=== PATIENT | male | born 1970 | race Caucasian/White ===

== ENCOUNTER 2022-06-17 08:26 | Emergency (ER) | payer BC, SELFPAY ==
--- NOTE | 2022-06-17 08:32 | ED.ABDPAIN ---
HPI - Abdominal Pain General Chief Complaint: Abdominal Pain Stated Complaint: rt side lower stomach pain Time Seen by Provider: 06/17/22 08:32 Source: patient Mode of arrival: ambulatory Limitations: no limitations History of Present Illness HPI narrative: Mr. Thornton is a 52-year-old male patient presenting to the clinic today with complaints right lower abdominal pain x2 weeks. He reports that 2 weeks ago he had pain in his right lower quadrant rating it a 10/10 and said it was very sharp. Over the last 2 weeks he has had constant pain to the right lower abdomen that is worse when he eats. States right now he reports his pain is a 3/10. States that he has had hot flashes and cold chills while having the pain however he does not know of any fever. Last bowel movement was yesterday and was normal for him. He denied any blood being in the stool. States he is only able to eat very small amounts due to the pain but if he goes without eating he gets nauseated and lightheaded from not eating. He is passing gas. Reports nausea only when not eating. He denies any vomiting currently. Related Data Home Medications Medication Instructions Recorded Confirmed No Home Medications 06/15/20 06/15/20 Allergies Allergy/AdvReac Type Severity Reaction Status Date / Time No Known Allergies Allergy Verified 06/17/22 09:03 Review of Systems Review of Systems: Pertinent positives per HPI. Patient denies any fever, chills, rash, headache, visual changes, dizziness, cough, runny nose, sore throat, shortness of breath, chest pain, palpitations, vomiting, diarrhea, constipation, or any urinary issues. [facility] Past Medical History Medical History Decreased libido Screening for lipid disorders Screening for prostate cancer Family History Family History Father No problems noted. Mother No problems noted. Sibling No problems noted. Social History Social History Smoking status: Never smoker Alcohol intake: never Substance use: never Additional occupation/education comments: [employer] Comments At the time of my signature, I reviewed and agree with the nursing past medical, surgical, social, and family history. There is no relevant family history pertinent to the patient complaint. Exam Narrative: General: Well-developed, well nourished, in no apparent distress. Head: Normocephalic, atraumatic. Cardio: Regular rate and rhythm, s1 and s2 normal, no murmur appreciated. Resp: Clear to auscultation bilaterally, no rhonchi, rales, wheezing or rubs. Abdomen: Soft, pliable, bowel sounds present in all quadrants, tender to palpation over the right lower quadrant/McBurney's point, no organomegly, no CVAT tenderness. Negative psoas and obturator sign Course Course Emergency Course: Portions of this record may have been created with voice recognition software. Level of Care: Express Care Visit Vital Signs Vital signs: Vital Signs Temperature 36.4 C 06/17/22 08:41 Pulse Rate 80 06/17/22 08:41 Respiratory Rate 16 06/17/22 08:41 Blood Pressure 140/81 06/17/22 08:41 Pulse Oximetry 97 06/17/22 08:41 Temperature 36.4 C 06/17/22 08:41 Pulse Rate 80 06/17/22 08:41 Respiratory Rate 16 06/17/22 08:41 Blood Pressure 140/81 06/17/22 08:41 Pulse Oximetry 97 06/17/22 08:41 Vital signs reviewed Transfer Transfered to: [place] Transportation: Other (Private car) Transfer rationale: Right lower quadrant abdominal pain rule out appendicitis Accepting physician: Dr. Mejia Transfer comments: transferred via private car MDM - Abdominal Pain MDM Narrative Medical decision making narrative: At the time of visit patient is resting on the exam table. He has point tenderness over McBurney'
[2022-06-17 08:41] VITALS: BP 140/81; PULSE 80; RESP 16; TEMP 36.4; O2SAT 97
== END 2022-06-17 08:48 | disposition short-term general hospital (02) ==
PROVIDERS: Emergency Provider Nurse Practitioner Family
DX: R10.31 Right lower quadrant pain (principal)
CPT/HCPCS: 99212; G0463

== ENCOUNTER 2022-06-17 09:03 | Observation (INO) | payer BC, SELFPAY ==
[2022-06-17] VITALS (14 sets, daily range): BP systolic 135–157; BP diastolic 72–95; PULSE 59–81; RESP 14–20; TEMP 36.2–36.8; O2SAT 95–100
--- NOTE | ~2022-06-17 | XR_ITS ---
EXAMINATION: XR stent kub - surgery DATE: 06/17/2022 14:35 INDICATION: Right internal ureteral stent placement TECHNIQUE: Fluoroscopic images from a right internal ureteral stent placement are submitted for kika whiting 17 seconds of fluoroscopy time. FINDINGS: There is a right double-J internal ureteral stent projecting in expected position, with proximal [place] loop at the level of the renal pelvis and distal loop in the pelvis within the bladder lumen. IMPRESSION: 1. Right internal ureteral stent placement. Please refer to real-time procedural findings for jose luis ls. Reviewed, dictated and finalized at location A. D WRITER IMPRESSION: 1. Right internal ureteral stent placement. Please refer to real-time procedu ral findings for details.
--- NOTE | ~2022-06-17 | CT_ITS ---
EXAMINATION: CT abdomen pelvis w con DATE: 06/17/2022 10:17 INDICATION: Right-sided abdominal pain for 2 weeks, right lower quadrant. Nausea, vomiting. TECHNIQUE: Computed tomography (CT) of the abdomen and pelvis was performed with 100 CC Omnipaque 350 intravenous contrast. Automated exposure control and iterative reconstruction technique were employe d. Exam dose: 820.47 mGy-cm total exam DLP. COMPARISON: None. FINDINGS: The lung bases are clear. Normal heart size. No pericardial or pleural effusion. Mild bilateral gynecomastia. The spleen measures approximately 12.6 cm vertical dimension, within upper normal range. No hepatic, splenic, pancreatic, and adrenal or renal space-occupying mass lesion is detected. The gallbladder is present. No gallbladder wall thickening or pericholecystic fluid or fat stranding. No bile duct or pancreatic duct dilatation. There is asymmetric diminished intensity of contrast enhancement of the right kidney compared to left with mild right hydroureteronephrosis secondary to a distal right ureteral 5.6 mm calculus. Normal caliber of the abdominal aorta. No intraperitoneal or retroperitoneal or pelvic mass lesion or adenopathy or ascites. Mild prostate calcification. The urinary bladder is unremarkable. Normal appendix. No bowel obstruction, bowel wall thickening, pneumatosis or intraperitoneal free air . Small fat-containing umbilical hernia. Degenerative spurring of the lower thoracic spine and severe degenerative disease and mild retrolisth esis and prominent posterior spurring at L5-S1. No suspicious osteolytic or osteoblastic lesions are noted. IMPRESSION: 5.6 mm distal right ureteral calculus with mild right hydroureteronephrosis Normal appendix Reviewed, dictated and finalized at Location A. Reviewed, dictated and finalized at location B. ORK CONTROLLER IMPRESSION: 5.6 mm distal right ureteral calculus with mild right hydrouretero nephrosis Normal appendix
--- NOTE | 2022-06-17 09:17 | ED.ABDPAIN ---
HPI - Abdominal Pain General Chief Complaint: Abdominal Pain Stated Complaint: right lower abd pain, sent from Time Seen by Provider: 06/17/22 09:16 Source: patient Mode of arrival: ambulatory Limitations: no limitations History of Present Illness HPI narrative: 52 years old white male presented to the ED from urgent care with right lower quadrant pain started 2 weeks ago, worse after eating, better without eating. Patient denies any trauma, nausea, vomiting, fever, chills, history of abdominal surgery. Patient does not take medicine at home, does not smoke or drink or uses drugs. Patient declined any pain medication at this time Related Data Home Medications Medication Instructions Recorded Confirmed No Home Medications 06/15/20 06/17/22 Allergies Allergy/AdvReac Type Severity Reaction Status Date / Time No Known Allergies Allergy Verified 06/17/22 09:03 Review of Systems Review of Systems: All systems reviewed & are unremarkable except as noted in HPI and below PMFSH Past Medical History Medical History Decreased libido Screening for lipid disorders Screening for prostate cancer Family History Family History Father No problems noted. Mother No problems noted. Sibling No problems noted. Social History Social History Smoking status: Never smoker Alcohol intake: never Substance use: never Additional occupation/education comments: [employer] Exam Narrative: General appearance: Well-developed, well-nourished Skin: Normal color Head: Normocephalic, nontraumatic Eyes: Clear conjunctiva ENT: Oropharynx normal, ears normal, nose normal Neck: Supple, nontender Chest and respiratory: Airway patent, no respiratory distress, no accessory muscle use Heart: Regular rate/rhythm Abdomen: Soft, slight right lower quadrant tenderness, no guarding or rebound, no organomegaly, quiet bowel sounds Vascular: Normal peripheral pulses, normal capillary refill. 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 RODRÍGUEZ Date: 06/17/22 Time: 11:15 Consultation #2: DR CHEN Date: 06/17/22 Time: 11:16 Vital Signs Vital signs: Vital Signs Temperature 36.6 C 06/17/22 09:13 Pulse Rate 63 06/17/22 09:13 Respiratory Rate 18 06/17/22 09:13 Blood Pressure 157/92 H 06/17/22 09:13 Pulse Oximetry 99 06/17/22 09:13 Oxygen Delivery Room Air 06/17/22 09:13 Temperature 36.3 C L 06/17/22 09:14 Pulse Rate 60 06/17/22 09:14 Respiratory Rate 18 06/17/22 09:14 Blood Pressure 153/91 H 06/17/22 09:14 Pulse Oximetry 100 06/17/22 09:14 Oxygen Delivery Room Air 06/17/22 09:14 MDM - Abdominal Pain Lab Data 06/17/22 09:19 06/17/22 09:19 Labs: Lab Results 06/17/22 06/17/22 06/17/22 Range/Units 09:19 09:19 09:34 WBC 8.2 (4.5-10.0) K/mm3 RBC 4.96 (4.6-6.20) M/mm3 Hgb 15.0 (14.0-18.0) g/dL Hct 43.3 (42.0-52.0) % MCV 87.3 (80-100) fl MCH 30.2 (26-34) pg MCHC 34.6 (32-36) g/dl RDW 12.4 (11.5-14.5) % Plt Count 184 (150-375) k/mm3 MPV 9.4 (7.4-10.4) fl Immature Gran % (Auto) 0.4 (0-0.5) % Neut % (Auto) 70.7 (45.5-73.1) % Lymph % (Auto) 18.3 (18.3-44.2) % [place] % (Auto) 7.9 (2.6-8.5) % Eos % (Auto) 2.2 (0-4.4) % Baso % (Auto) 0.5 (0.2-1.2) % Lymph # (Auto) 1.50 (0.9-3.2) K/mm
[2022-06-17 09:33] LABS: Basophils Percent Auto 0.5 % (0.2-1.2); Eosinophils Absolute Auto 0.2 K/mm3 (0-0.3); Eosinophils Percent Auto 2.2 % (0-4.4); Hematocrit 43.3 % (42.0-52.0); Immature Granulocyte Absolute 0.03 K/mm3 (0.00-0.031); Immature Granulocyte Percent A 0.4 % (0-0.5); Lymphocytes Percent Auto 18.3 % (18.3-44.2); Mean Corpuscular HGB Conc 34.6 g/dl (32-36); Mean Corpuscular Hemoglobin 30.2 pg (26-34); Mean Corpuscular Volume 87.3 fl (80-100); Mean Platelet Volume 9.4 fl (7.4-10.4); Monocytes Absolute Auto 0.7 K/mm3 (0.1-0.6); Monocytes Percent Auto 7.9 % (2.6-8.5); Neutrophils Absolute Auto 5.8 K/mm3 (1.3-6.7); Neutrophils Percent Auto 70.7 % (45.5-73.1); Platelet Count Result 184 k/mm3 (150-375); Red Blood Count 4.96 M/mm3 (4.6-6.20); Red Cell Distribution Width 12.4 % (11.5-14.5); White Blood Count 8.2 K/mm3 (4.5-10.0)
[2022-06-17] MEDS: SODIUM CHLORIDE 0.9% IV 1,000 ML 999 ML IV CONT (09:36)
[2022-06-17 09:44] LABS: Appearance Urine Clear (Clear); Bilirubin Urine Negative (Negative); Blood Urine 2+ (Negative); Color Urine Yellow (Yellow); Glucose Urine UA Negative (Negative); Ketones Urine Negative (Negative); Leukocyte Esterase Ur 2+ LEU/UL (Negative); Nitrate Urine Negative (Negative); Protein Urine Negative (Negative); Urobilinogen Urine 0.2 mg/dL (<2.0); pH Urine 5.5 (5.0-9.0)
[2022-06-17 09:46] LABS: Alanine Aminotransferase 23 U/L (6-50); Albumin Level 4.2 g/dL (3.5-5.1); Alkaline Phosphatase 64 U/L (38-126); Anion Gap 4 mmol/L (8-16); Aspartate Amino Transferase 26 U/L (17-59); Bilirubin,Total 0.8 mg/dL (0.2-1.3); Blood Urea Nitrogen 15 mg/dL (9-20); Calcium 8.7 mg/dL (8.4-10.2); Carbon Dioxide 31 mmol/L (22-30); Chloride 102 mmol/L (98-107); Estimated CRCL calculation 61 ml/min; Estimated Glomerular Filt Rate 43; Glucose 88 mg/dL (65-110); Lipase 1450 U/L (23-300); Potassium 3.7 mmol/L (3.4-5.0); Sodium 137 mmol/L (137-145)
[2022-06-17 09:49] LABS: WBC Urine 21-30 /hpf
[2022-06-17 09:52] LABS: Add Urine Microscopic? YES
--- NOTE | 2022-06-17 11:30 | WPDURCON ---
Assessment and Plan Assessment and plan (1) Ureteral stone: Code(s): N20.1 - Calculus of ureter Status: Acute Assessment and Plan: I discussed with patient. After 2 weeks of symptoms at this point it is unlikely with stones going to pass. He also has an elevated creatinine which somewhat increases the level of urgency. We will proceed with right ureteroscopy with stone extraction and possible stent placement. He understands risks of bleeding, infection, inability to remove the stone, damage to the urinary tract. He agrees to proceed (2) Hydronephrosis: Code(s): N13.30 - Unspecified hydronephrosis Status: Acute Assessment and Plan: due to ureteral stone (3) Elevated serum creatinine: Code(s): R79.89 - Other specified abnormal findings of blood chemistry Status: Acute Assessment and Plan: possibly due to ureteral stone. Will need to be monitored postprocedure. 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 He states that approximately 2 weeks ago he noted acute onset of right flank pain radiating to the right lower quadrant with nausea and vomiting. He states he is not good about going to the doctor, but has had intermittent bouts of pain for the last 2 weeks. He finally decided it was time to present to the emergency room today to make sure nothing serious was going on. A CT scan was done which showed a 6 mm right distal ureteral stone. There was hydronephrosis proximal to the stone. He has abnormal lab values in terms of his elevated lipase. He also has an elevated creatinine. He has got no visible blood in the urine. No symptoms urinary tract infection. Due to the elevated creatinine and the chronicity of the stone we will proceed with intervention today. He will be admitted to the hospitalist postoperatively for workup of his elevated liver function tests Review of Systems Review of Systems: All systems reviewed & are unremarkable except as noted in HPI and below PMFSH Past Medical History Medical History Decreased libido Screening for lipid disorders Screening for prostate cancer Family History Family History Father No problems noted. Mother No problems noted. Sibling No problems noted. Social History Social History Smoking status: Never smoker Alcohol intake: never Substance use: never Additional occupation/education comments: [employer] Meds Home Medications and Allergies Home Medications Medication Instructions Recorded Confirmed Type No Home Medications 06/15/20 06/17/22 History sildenafil 100 mg tablet 100 mg PO DAILY PRN sexual 01/31/22 06/17/22 Rx activity #10 tabs Allergies Allergy/AdvReac Type Severity Reaction Status Date / Time No Known Allergies Allergy Verified 06/17/22 09:03 Vital Signs Vital Signs - 24 hr 06/17/22 09:13 06/17/22 09:14 Temperature 97.9 F 97.4 F L Pulse Rate 63 60 Respiratory Rate 18 18 Blood Pressure 157/92 H 153/91 H Pulse Oximetry 99 100 Oxygen Delivery Room Air Room Air Exam Const: General: cooperative, healthy appearing, comfortable, well developed, alert, awake and Physically active; No no acute distress, anxious, combative or confusion Nutritional Appearance: average body habitus and well nourished Orientation/consciousness: patient oriented x3 HENMT: Head: normal to inspection Eyes: General: appearance normal, both eyes and all related structures Neck: Neck: normal visual inspection and full ROM Resp: Effort & Inspection: normal respiratory effort, able to speak in complete sentences, no cough, no grunting and not labored
[2022-06-17 12:16] LABS: SARS-CoV-2 RNA PCR Negative
--- NOTE | 2022-06-17 12:31 | PM.IMHP ---
H&P: HPI History of Present Illness Date/Time: 06/17/22 12:31 Chief Complaint: Abdominal pain Narrative: This is a 52-year-old male patient who presented to the emergency room from urgent care due to right lower quadrant pain. The patient stated that he has been having pain for at least 2 weeks now. He stated that it is a dull pain to the right flank area. He denies any trauma. He denies any nausea vomiting or diarrhea. The patient stated that he vomited approximately 2 weeks ago but not has not had any nausea vomiting since. Abdominal pelvis CT was read as a 5.6 mm distal right ureteral calculus with mild right hydroureteronephrosis. Normal appendix. Urology has seen the patient and they took the patient for a right internal ureteral stent placement. Patient's creatinine is 1.70. We have no recent labs to compare this with. Lipase is 1450. The patient has 2+ leukocyte esterase rbc's 6-10 and wbc's 21-30. He was negative for COVID. The patient was given IV fluids, IV Tylenol, and Ancef. The patient is being admitted to observation on the date of service of 06/17/2022. Review of Systems Review of Systems: See HPI All systems reviewed & are unremarkable except as noted in HPI and below Constitutional: Constitutional: Reports as per HPI and Reports no additional constitutional complaints Eyes: Eyes: Reports as per HPI and Reports no additional eye complaints ENT: Reports system reviewed and no additional complaints, except as documented and Reports Normal hearing present Cardiovascular: Cardiovascular: Reports no additional cardiovascular complaints Respiratory: Respiratory: Reports no additional respiratory complaints and Reports no additional respiratory complaints Gastrointestinal: Gastrointestinal: Reports as per HPI and Reports no additional gastrointestinal complaints Musculoskeletal: Musculoskeletal: Reports no additional musculoskeletal complaints Integumentary/Breasts: Skin/Breast: Reports system reviewed and no additional complaints, except as docu and Reports as per HPI Neurologic: Reports system reviewed and no additional complaints, except as documented, Reports as per HPI and Reports Normal hearing present Psychiatric: Psychiatric: Reports no additional psychiatric complaints and Reports as per HPI Endocrine: Endocrine: Reports no additional endocrine complaints Hematologic/Lymphatic: Hematologic/Lymphatic: Reports no additional hematologic/lymphatic complaints Allergic/Immunologic: Allergic/Immunologic: Reports no additional allergic/immunologic complaints [facility] Past Medical History Medical History Decreased libido Screening for lipid disorders Screening for prostate cancer Surgical History Surgical History Hx of wisdom tooth extraction Family History Family History Father Carcinoma of colon Mother No problems noted. Sibling No problems noted. Social History Social History (Updated 06/17/22 @ 15:02 by Bree Ball NP) Social History: The patient has 1 child that he adopted. He lives with his and she is the durable power attorney law clerk for healthcare. Patient is a lifelong nonsmoker. He works for [employer]. He does not use any alcohol marijuana or illicit drugs. Code status full code Smoking status: Never smoker Alcohol intake: never Substance use: never Additional occupation/education comments: [employer] Meds Home Medications and Allergies Home Medications Medication Instructions Recorded Confirmed Type No Home Medications 06/15/20 06/17/22 History Allergies Allergy/AdvReac Type Severity Reaction Status Date / Time No Known Allergies Allergy Verified 06/17/22 13:06 Vital Signs Vital Signs - 24 hr 06/17/22 09:13 06/17/22 09:14 06/17/22 11:59 Temperature
--- NOTE | 2022-06-17 13:26 | WPDANESEPPF ---
Anes - Initial Pre Proc Eval Procedure: Operation Date: 06/17/22 15:15 Proposed Procedures p Cystoscopy, Right Ureteroscopy, Possible Right Retrograde Pyelogram, Possible Right Stone Extraction, Possible Right Stent Placement, Possible Holmium Laser - Olvin Marks MD Date/Time: 06/17/22 13:26 Surgeon: Olvin Marks MD Pre Op Diagnosis: right lower abd pain, sent from Patient Data Age: 52 Gender: M Height: 1.88 m Weight: 107 kg Last Vital Signs Temp 36.3 C L 06/17/22 09:14 Pulse 70 06/17/22 11:59 Resp 20 06/17/22 11:59 BP 142/72 H 06/17/22 11:59 Pulse Ox 99 06/17/22 11:59 O2 Del Method Room Air 06/17/22 09:14 Allergies Allergy/AdvReac Type Severity Reaction Status Date / Time No Known Allergies Allergy Verified 06/17/22 13:06 Home Medications Medication Instructions Recorded Confirmed Type No Home Medications 06/15/20 06/17/22 History Laboratory Tests 06/17/22 06/17/22 06/17/22 09:19 09:19 09:34 WBC 8.2 K/mm3 K/mm3 (4.5-10.0) RBC 4.96 M/mm3 M/mm3 (4.6-6.20) Hgb 15.0 g/dL g/dL (14.0-18.0) Hct 43.3 % % (42.0-52.0) MCV 87.3 fl fl (80-100) MCH 30.2 pg pg (26-34) MCHC 34.6 g/dl g/dl (32-36) RDW 12.4 % % (11.5-14.5) Plt Count 184 k/mm3 k/mm3 (150-375) MPV 9.4 fl fl (7.4-10.4) Immature Gran % (Auto) 0.4 % % (0-0.5) Neut % (Auto) 70.7 % % (45.5-73.1) Lymph % (Auto) 18.3 % % (18.3-44.2) [place] % (Auto) 7.9 % % (2.6-8.5) Eos % (Auto) 2.2 % % (0-4.4) Baso % (Auto) 0.5 % % (0.2-1.2) Lymph # (Auto) 1.50 K/mm3 K/mm3 (0.9-3.2) [place] # (Auto) 0.7 K/mm3 H K/mm3 (0.1-0.6) Eos # (Auto) 0.2 K/mm3 K/mm3 (0-0.3) Baso # (Auto) 0.0 K/mm3 K/mm3 (0.0-0.1) Abs Immat Gran (auto) 0.03 K/mm3 K/mm3 (0.00-0.031) Absolute Neuts (auto) 5.8 K/mm3 K/mm3 (1.3-6.7) Absolute Nucleated RBC 0.0 K/mm3 K/mm3 (0.0-0.012) Nucleated RBC % 0.0 % % (0.0-0.2) Sodium 137 mmol/L mmol/L (137-145) Potassium 3.7 mmol/L mmol/L (3.4-5.0) Chloride 102 mmol/L mmol/L (98-107) Carbon Dioxide 31 mmol/L H mmol/L (22-30) Anion Gap 4 mmol/L L mmol/L (8-16) BUN 15 mg/dL mg/dL (9-20) Creatinine 1.70 mg/dL H mg/dL (0.7-1.3) Estim Creat Clear Calc 61 ml/min ml/min Estimated GFR 43 L (59 - ) Glucose 88 mg/dL mg/dL (65-110) Calcium 8.7 mg/dL mg/dL (8.4-10.2) Total Bilirubin 0.8 mg/dL mg/dL (0.2-1.3) AST 26 U/L U/L (17-59) ALT 23 U/L U/L (6-50) Alkaline Phosphatase 64 U/L U/L (38-126) Total Protein 7.0 g/dL g/dL (6.3-8.2) Albumin 4.2 g/dL g/dL (3.5-5.1) Lipase 1450 U/L H U/L (23-300) Urine Color Yellow (Yellow) Urine Appearance Clear (Clear) Urine pH 5.5 (5.0-9.0) Ur Specific [place] 1.010 (1.001-1.035) Urine Protein Negative mg/dL mg/dL (Negative) Urine Glucose (UA) Negative mg/dL mg/dL (Negative) Urine Ketones Negative mg/dL mg/dL (Negative) Ur Blood (Man) 2+ H (Negative) Urine Nitrate Negative (Negative) Urine Bilirubin Negative (Negative) Urine Urobilinogen 0.2 mg/dL mg/dL (<2.0) Leukocyte Esterase Rfl 2+ MAIN/UL H MAIN/UL (Negative) Urine RBC 6-10 /hpf H /hpf (0-2) Urine WBC 21-30 /hpf H /hpf SARS-CoV-2 RNA (RT-PCR) 06/17/22 11:35 WBC RBC Hgb Hct MCV MCH MCHC RDW Plt Count MPV Immature Gran % (Auto) Neut % (Auto) Lymph % (Auto) [place] % (Auto) Eos % (Au
[2022-06-17] MEDS: LACTATED RINGERS 1,000 ML 30 ML IV CONT (13:51)
--- NOTE | 2022-06-17 13:55 | WPDHPUPDATE1 ---
History and Physical Update Update Date/Time: 06/17/22 13:55 History and Physical has been reviewed, including an updated exam of the patient. There are NO changes in the patient's condition. Risks, benefits, and alternatives have been discussed and questions answered. Patient agrees to proceed with procedure.
[2022-06-17] MEDS: ceFAZolin 2 GM/D5W 50 ML 2 GM/50 ML BAG IVPB (14:04)
--- NOTE | 2022-06-17 14:32 | W.PM.PROC2 ---
Procedure Note - Detailed Date of Procedure 06/17/22 Pre-op Diagnosis Right ureteral stone Post-op Diagnosis Same Procedure Performed Cystoscopy, right ureteroscopy, laser lithotripsy with stone removal and stent placement Surgeon Olvin Marks MD Anesthesia General Description of Procedure The patient was brought to the operative suite where he is prepped and draped in a routine sterile fashion while in the dorsal lithotomy position after the uneventful induction of a general LMA anesthetic. A 19F rigid cystoscope was placed in the bladder. There are no urethral strictures. His prostatic urethra measures, approximately, 2.0cm with no median lobe enlargement. The bladder mucosa was endoscopically normal without hyperemia or neoplasm. There was a single, orthotopic ureteral orifice bilaterally. A 0.035 glidewire was advanced into the right renal pelvis under fluoroscopy. The distal ureter was dilated with an 8F/10F ureteral dilator. Ureteroscopy was undertaken with a short tapered semi-rigid ureteroscope. During ureteroscopy I fractured the stone into smaller pieces using a 273 micron Holmium laser fiber with the Holmium laser. I was able to then extract the stone pieces using a 1.9F Escape, disposable stone basket. Due to the extent of this manipulation I did place a 4.8F double-J ureteral stent. The proximal coil of the stent was confirmed to be in the renal pelvis and the distal coil in the bladder. The patient's bladder was emptied and he was taken to the recovery room having tolerated this procedure well. Drains No Packing Yes Pathology Yes Complications No immediate complications Condition Stable Disposition PACU
--- NOTE | 2022-06-17 16:13 | SUR.PHASEI ---
Patient meets criteria to be transferred out of PACU and is ready to go to inpatient room at 1540- waiting on room assignment and beds to be cleaned.
--- NOTE | 2022-06-17 17:12 | ADMGEN ---
This patient, Laith Thornton, was admitted to Medical Room [facility] @[id number]. Patient/family oriented to hospital policies and general routines including ID bracelet, bed and alarms, visiting hours, pain management, procedures, bathroom and other care routines, personal items, smoking policy, room service/diet, and visiting hours. Information on how to activate the Rapid Response Team has been discussed. Patient/Family are encouraged to report perceived risks to care and to ask questions if they do not understand what they are told or what they should do.
[2022-06-17] MEDS: SODIUM CHLORIDE 0.9% IV 1,000 ML 150 ML IV CONT (18:00)
[2022-06-17] MEDS: SODIUM CHLORIDE 0.9% IV 1,000 ML 125 ML IV CONT (21:07)
[2022-06-18] MEDS: SODIUM CHLORIDE 0.9% IV 1,000 ML 125 ML IV CONT (03:29)
[2022-06-18 05:54] VITALS: BP 119/62; PULSE 79; RESP 18; TEMP 36.6; O2SAT 97
[2022-06-18 06:30] LABS: Basophils Percent Auto 0.1 % (0.2-1.2); Hematocrit 39.9 % (42.0-52.0); Hemoglobin 14.1 g/dL (14.0-18.0); Immature Granulocyte Absolute 0.06 K/mm3 (0.00-0.031); Immature Granulocyte Percent A 0.6 % (0-0.5); Lymphocytes Absolute Auto 1.06 K/mm3 (0.9-3.2); Lymphocytes Percent Auto 9.8 % (18.3-44.2); Mean Corpuscular HGB Conc 35.3 g/dl (32-36); Mean Corpuscular Hemoglobin 30.1 pg (26-34); Mean Corpuscular Volume 85.3 fl (80-100); Mean Platelet Volume 9.4 fl (7.4-10.4); Monocytes Absolute Auto 0.5 K/mm3 (0.1-0.6); Monocytes Percent Auto 4.4 % (2.6-8.5); Neutrophils Absolute Auto 9.2 K/mm3 (1.3-6.7); Neutrophils Percent Auto 85.1 % (45.5-73.1); Platelet Count Result 193 k/mm3 (150-375); Red Blood Count 4.68 M/mm3 (4.6-6.20); Red Cell Distribution Width 12.2 % (11.5-14.5); White Blood Count 10.8 K/mm3 (4.5-10.0)
[2022-06-18 06:41] LABS: Alanine Aminotransferase 21 U/L (6-50); Albumin Level 3.8 g/dL (3.5-5.1); Alkaline Phosphatase 50 U/L (38-126); Anion Gap 7 mmol/L (8-16); Aspartate Amino Transferase 24 U/L (17-59); Bilirubin,Total 0.7 mg/dL (0.2-1.3); Blood Urea Nitrogen 16 mg/dL (9-20); Calcium 8.3 mg/dL (8.4-10.2); Carbon Dioxide 26 mmol/L (22-30); Chloride 103 mmol/L (98-107); Cholesterol 150 mg/dL (0-200); Estimated CRCL calculation 73 ml/min; Estimated Glomerular Filt Rate 53; Glucose 126 mg/dL (65-110); HDL Direct 34 mg/dL; Lipase 47 U/L (23-300); Sodium 136 mmol/L (137-145); Triglycerides 103 mg/dL (<150)
[2022-06-18 06:52] LABS: LDL Cholesterol Direct 79 mg/dL
[2022-06-18 09:56] LABS: Total Triiodothyronine (T3) 0.92 NG/ML (0.97-1.69)
--- NOTE | 2022-06-18 10:41 | PM.DS ---
DS: Admitting Diagnosis Discharge Date 06/18/2022 Admitting Diagnosis right flank pain DS: Discharge Diagnosis Discharge Diagnosis (1) Kidney stone on right side: Code(s): N20.0 - Calculus of kidney Status: Acute Assessment and Plan: -urology has been consulted and has seen the patient. The patient was taken to OR. He had a right renal stone and was taken to surgery for cystoscopy, right ureteroscopy, laser lithotripsy with stone removal and stent replacement per Dr. Marks. -continue with analgesics -continue with IV fluids. (2) Elevated lipase: Code(s): R74.8 - Abnormal levels of other serum enzymes Status: Acute Assessment and Plan: -check lipase levels in the a.m.. -Check lipid profile in the a.m.. -CT of the abdomen shows that the gallbladder is normal without any thickening or dilatation. Also the pancreas is normal on his CT scan. -he denies any nausea vomiting. -I did consider an ultrasound of the gallbladder however the patient is declining this at this time. Will continue to monitor his lipase levels and check his lipid profile. (3) UTI (urinary tract infection): Code(s): N39.0 - Urinary tract infection, site not specified Status: Acute Assessment and Plan: -the patient was started on Rocephin. -tailor antibiotics to blood and urine cultures. (4) Kidney failure: Code(s): N19 - Unspecified kidney failure Status: Acute Assessment and Plan: -we do not have any previous creatinine levels to compare with today's value. His creatinine is 1.7. -continue with hydration. -if no improvement and his renal function may consider renal ultrasound and refer to nephrology. -most likely this is related to his kidney stone. DS: Summary Hospital Course Reason for hospitalization: Abdominal pain Narrative: This is a 52-year-old male patient who presented to the emergency room from urgent care due to right lower quadrant pain.? The patient stated that he has been having pain for at least 2 weeks now.? He stated that it is a dull pain to the right flank area.? He denies any trauma.? He denies any nausea vomiting or diarrhea.? The patient stated that he vomited approximately 2 weeks ago but not has not had any nausea vomiting since.? Abdominal pelvis CT was read as a 5.6 mm distal right ureteral calculus with mild right hydroureteronephrosis.? Normal appendix.? Urology has seen the patient and they took the patient for a right internal ureteral stent placement.? Patient's creatinine is 1.70.? We have no recent labs to compare this with.? Lipase is 1450.? The patient has 2+ leukocyte esterase rbc's 6-10 and wbc's 21-30.? He was negative for COVID.? The patient was given IV fluids, IV Tylenol, and Ancef.? The patient is being admitted to observation on the date of service of 06/17/2022. Hospital Course: 52-year-old male the flank pain was found to have a kidney stone, patient was seen by Urology was taken to the lab and had a cystoscopy, right ureteroscopy, laser lithotripsy with stone removal and stent placement, patient is now clinically will going discharge the patient to follow up with urologist as scheduled. Time Spent with Patient Time attestation: Total time spent providing and/or coordinating discharge services: Exam Narrative: Patient is comfortable, NAD HEENT: eyes are clear and none icteric LUNGS:CTA HEART: RR S1S2 ABD: BS+, Soft and nontender Lower extremities: no edema SKIN: nonjaundiced Neuro: grossly intact. DS: Data Data Completed and Pending Pending studies at discharge: Pending at discharge 06/17/22 14:29 Surgical [PTH] Routine Labs on day of discharge: Labs from last 24 hours 06/18/22 06/18/22 06/18/22 06:12 06:12 06:12 WBC RBC Hgb Hct MCV MCH MCHC RDW Plt Count MPV Immature Gran % (Auto) Neut % (Auto) Lymph % (Auto) Eagle % (Auto) Eos % (Auto) Baso % (Aut
[2022-06-18 12:05] LABS: Magnesium 1.7 mg/dL (1.6-2.3)
== END 2022-06-18 11:30 | disposition home or self-care (01) ==
LOC: ANHED 11:28 → ANH3MED 06-18 03:04 → ANHED 06-20 13:22 → ANHSURGERY 06-20 13:22 → ANH3MED 06-20 13:44
PROVIDERS: Nurse Practitioner; Urology; Admitting Provider Hospitalist; Emergency Provider Emergency Medicine; Visit Provider Family Medicine
PROC: (CPT 52352; principal; 2022-06-17 15:15)
DX: N13.2 Hydronephrosis with renal and ureteral calculous obstruction (principal); R74.8 Abnormal levels of other serum enzymes; N39.0 Urinary tract infection, site not specified; N19 Unspecified kidney failure; Z20.822 Contact with and (suspected) exposure to COVID-19; E66.9 Obesity, unspecified; Z68.30 Body mass index [BMI] 30.0-30.9, adult
CPT/HCPCS: 52356; 36415; 74177; 80053; 80061; 81001; 82365; 83690; 83735; 84100; 84439; 84443; 84480; 85025; 87040; 87086; 88300; 96361; 96374; 99285; A9270; C1769; C2617; G0378; J0690; J0696; J1100; J2250; J2405; J2704; J3010; J7030; J7120; Q9967; U0003; U0005

== ENCOUNTER 2023-07-06 08:04 | Outpatient (CLI) | payer BC, SELFPAY ==
[2023-07-06 12:04] LABS: Hematocrit 46.4 % (42.0-52.0); Hemoglobin 16.1 g/dL (14.0-18.0); Mean Corpuscular HGB Conc 34.7 g/dl (32-36); Mean Corpuscular Hemoglobin 30.5 pg (26-34); Mean Corpuscular Volume 87.9 fl (80-100); Mean Platelet Volume 9.9 fl (7.4-10.4); Platelet Count Result 174 k/mm3 (150-375); Red Blood Count 5.28 M/mm3 (4.6-6.20); Red Cell Distribution Width 12.6 % (11.5-14.5); White Blood Count 7.1 K/mm3 (4.5-10.0)
[2023-07-06 12:14] LABS: Anion Gap 7 mmol/L (8-16); Blood Urea Nitrogen 12 mg/dL (9-20); Carbon Dioxide 29 mmol/L (22-30); Chloride 103 mmol/L (98-107); Cholesterol 147 mg/dL (0-200); Estimated Glomerular Filt Rate > 60; Glucose 111 mg/dL (65-110); HDL Direct 35 mg/dL; Lipase 190 U/L (23-300); Potassium 3.9 mmol/L (3.4-5.0); Sodium 139 mmol/L (137-145); Triglycerides 231 mg/dL (<150)
[2023-07-06 12:25] LABS: LDL Cholesterol Direct 67 mg/dL
[2023-07-06 12:43] LABS: Prostate Specific Antigen 0.7 ng/mL (< OR = 4.0)
[2023-07-12 11:47] LABS: Testosterone Free 75.5 pg/mL (35.0-155.0); Testosterone Total 447 ng/dL (250-1100)
== END 2023-07-06 08:05 | disposition home or self-care (01) ==
LOC: ANHGOSHLAB 08:05
PROVIDERS: PCP Family Medicine; Visit Provider Family Medicine
DX: Z12.5 Encounter for screening for malignant neoplasm of prostate (principal); Z13.220 Encounter for screening for lipoid disorders; N18.9 Chronic kidney disease, unspecified; R68.82 Decreased libido
CPT/HCPCS: 36415; 80048; 80061; 83690; 84153; 84402; 84403; 84443; 85027; G0103

== ENCOUNTER 2023-07-21 08:14 | Outpatient (CLI) | payer BC, SELFPAY ==
[2023-07-21 19:44] LABS: Hemoglobin A1C 5.6 % (<5.7)
== END 2023-07-21 08:15 | disposition home or self-care (01) ==
LOC: ANHGOSHLAB 08:15
PROVIDERS: PCP Family Medicine; Visit Provider Nurse Practitioner Family
DX: R73.09 Other abnormal glucose (principal)
CPT/HCPCS: 36415; 83036

== ENCOUNTER 2023-08-21 00:37 | Day surgery (SDC) | payer BC, SELFPAY ==
[2023-07-21 15:14] VITALS: BMI 33.3
--- NOTE | 2023-08-18 09:06 | SUR.PREOP ---
Patient called regarding upcoming procedure. Reviewed preop instructions, appointment times, and procedure prep.
[2023-08-21 07:11] VITALS: BP 146/89; PULSE 74; RESP 18; TEMP 36; O2SAT 97; BMI 33.5
[2023-08-21] MEDS: LACTATED RINGERS 1,000 ML 150 ML IV CONT (07:28)
--- NOTE | 2023-08-21 07:45 | PM.HPGS ---
History of Present Illness History of Present Illness Consent: Risks, benefits, and alternatives have been discussed and questions answered. Patient agrees to proceed with procedure. Chief complaint: neoplasm screening Narrative: Laith Thornton is a 53 year old male here for first screening colonoscopy Review of Systems Constitutional: Constitutional: Denies headache(s) and Denies weakness Eyes: Eyes: Denies blurry vision ENT: Reports Normal hearing present, Denies headache(s) and Denies neck pain Cardiovascular: Cardiovascular: Denies chest pain and Denies dyspnea Respiratory: Respiratory: Denies dyspnea Gastrointestinal: Gastrointestinal: Reports no additional gastrointestinal complaints Genitourinary: Genitourinary: Denies dysuria Musculoskeletal: Musculoskeletal: Denies neck pain Integumentary/Breasts: Skin/Breast: Denies dry skin Neurologic: Reports Normal hearing present, Denies headache(s) and Denies weakness Psychiatric: Psychiatric: Denies anxiety Endocrine: Endocrine: Denies change in body appearance Hematologic/Lymphatic: Hematologic/Lymphatic: Denies easy bleeding Allergic/Immunologic: Allergic/Immunologic: Denies urticaria PMF Past Medical History Medical History (Updated 08/21/23 @ 07:46 by Micheal Leach MD) BMI 33.0-33.9,adult Chest pain CKD (chronic kidney disease) Colon cancer screening Decreased libido History of kidney stones Screening for lipid disorders Screening for prostate cancer Surgical History Surgical History Hx of wisdom tooth extraction Family History Family History Father Carcinoma of colon Hypertension Mother Skin cancer Breast cancer Heart disease Sibling No problems noted. Social History Social History Social History: The patient has 1 child that he adopted. He lives with his and she is the durable power insurance defense attorney for healthcare. Patient is a lifelong nonsmoker. He works for [employer]. He does not use any alcohol marijuana or illicit drugs. 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 Gender identity (if verbalized by the patient): Male Spiritual care concerns: No Meds Home Medications and Allergies Home Medications Medication Instructions Recorded Confirmed Type No Home Medications 07/04/23 08/21/23 History Allergies Allergy/AdvReac Type Severity Reaction Status Date / Time No Known Allergies Allergy Verified 08/21/23 07:19 Vital Signs Vital Signs - 24 hr 08/21/23 07:11 Temperature 96.8 F L Pulse Rate 74 Respiratory Rate 18 Blood Pressure 146/89 H Pulse Oximetry 97 Oxygen Delivery Room Air Exam Const: General: comfortable and no acute distress HENMT: Face/Nose/Sinus: Normal nares present Eyes: General: appearance normal, both eyes and all related structures Neck: Neck: no JVD Resp: Auscultation: clear to auscultation bilaterally Cardio: Rate: regular rate Rhythm: regular rhythm GI: Inspection: non-distended GI Palp: Yes Soft to palpation Skin: General skin exam: normal color Neuro: General: gait normal Speech: normal speech Extrem: General: normal to inspection
--- NOTE | 2023-08-21 07:57 | WPDANESEPPF ---
Anes - Initial Pre Proc Eval Procedure: Operation Date: 08/21/23 08:30 Proposed Procedures p Screening Colonoscopy - Micheal Leach MD Date/Time: 08/21/23 07:57 Surgeon: Micheal Leach MD Pre Op Diagnosis: neoplasm screening Patient Data Age: 53 Gender: M Height: 1.83 m Weight: 112 kg Last Vital Signs Temp 96.8 F L 08/21/23 07:11 Pulse 74 08/21/23 07:11 Resp 18 08/21/23 07:11 BP 146/89 H 08/21/23 07:11 Pulse Ox 97 08/21/23 07:11 O2 Del Method Room Air 08/21/23 07:11 Allergies Allergy/AdvReac Type Severity Reaction Status Date / Time No Known Allergies Allergy Verified 08/21/23 07:19 Home Medications Medication Instructions Recorded Confirmed Type No Home Medications 07/04/23 08/21/23 History Patient hx anesthesia problems: none Family hx anesthesia problems: none Results Review: All pre-operative results and documents have been reviewed as part of the pre-operative evaluation. [facility] Past Medical History Medical History (Updated 08/21/23 @ 07:46 by Micheal Leach MD) BMI 33.0-33.9,adult Chest pain CKD (chronic kidney disease) Colon cancer screening Decreased libido History of kidney stones Screening for lipid disorders Screening for prostate cancer Surgical History Surgical History Hx of wisdom tooth extraction Family History Family History Father Carcinoma of colon Hypertension Mother Skin cancer Breast cancer Heart disease Sibling No problems noted. Social History Social History Social History: The patient has 1 child that he adopted. He lives with his and she is the durable power attorney at law for healthcare. Patient is a lifelong nonsmoker. He works for [employer]. He does not use any alcohol marijuana or illicit drugs. 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 Informed Consent: The patient's anesthetic plan and its attendant risks and benefits were discussed with the patient/family/POA. Questions were solicited and answers provided to the satisfaction of the patient/family/POA.
[2023-08-21 08:05] VITALS: BP 114/73; PULSE 70; RESP 23; O2SAT 96
[2023-08-21 08:15] VITALS: BP 117/79; PULSE 68; RESP 18; O2SAT 97
[2023-08-21 08:25] VITALS: BP 120/84; PULSE 63; RESP 26; O2SAT 97
== END 2023-08-21 08:29 | disposition home or self-care (01) ==
PROVIDERS: PCP Family Medicine; Visit Provider Internal Medicine Gastroenterology
PROC: 0DJD8ZZ Inspection of Lower Intestinal Tract, Via Natural or Artificial Opening Endoscopic (ICD-10-PCS; CPT 45378; principal; 2023-08-21 08:30)
DX: Z12.11 Encounter for screening for malignant neoplasm of colon (principal); D12.3 Benign neoplasm of transverse colon; K64.8 Other hemorrhoids; N18.9 Chronic kidney disease, unspecified; E66.9 Obesity, unspecified; Z68.33 Body mass index [BMI] 33.0-33.9, adult; Z80.0 Family history of malignant neoplasm of digestive organs; Z84.0 Family history of diseases of the skin and subcutaneous tissue; Z80.3 Family history of malignant neoplasm of breast; Z82.49 Family history of ischemic heart disease and other diseases of the circulatory system
CPT/HCPCS: 45385; 88305; J2704; J7120

== ENCOUNTER 2024-03-29 09:16 | Outpatient (CLI) | payer BC, SELFPAY ==
[2024-03-29 15:35] LABS: Basophils Percent Auto 0.6 % (0.2-1.2); Eosinophils Absolute Auto 0.2 K/mm3 (0-0.3); Eosinophils Percent Auto 2.4 % (0-4.4); Hematocrit 46.9 % (42.0-52.0); Hemoglobin 16.2 g/dL (14.0-18.0); Immature Granulocyte Absolute 0.04 K/mm3 (0.00-0.031); Immature Granulocyte Percent A 0.6 % (0-0.5); Lymphocytes Absolute Auto 2.03 K/mm3 (0.9-3.2); Lymphocytes Percent Auto 30.8 % (18.3-44.2); Mean Corpuscular HGB Conc 34.5 g/dl (32-36); Mean Corpuscular Hemoglobin 30.9 pg (26-34); Mean Corpuscular Volume 89.5 fl (80-100); Mean Platelet Volume 10.2 fl (7.4-10.4); Monocytes Absolute Auto 0.5 K/mm3 (0.1-0.6); Monocytes Percent Auto 7.7 % (2.6-8.5); Neutrophils Absolute Auto 3.8 K/mm3 (1.3-6.7); Neutrophils Percent Auto 57.9 % (45.5-73.1); Platelet Count Result 172 k/mm3 (150-375); Red Blood Count 5.24 M/mm3 (4.6-6.20); Red Cell Distribution Width 12.9 % (11.5-14.5); White Blood Count 6.6 K/mm3 (4.5-10.0)
[2024-03-29 16:07] LABS: Alanine Aminotransferase 42 U/L (6-50); Albumin Level 4.3 g/dL (3.5-5.1); Alkaline Phosphatase 85 U/L (38-126); Anion Gap 8 mmol/L (4-12); Aspartate Amino Transferase 77 U/L (17-59); Blood Urea Nitrogen 14 mg/dL (9-20); Calcium 8.9 mg/dL (8.4-10.2); Carbon Dioxide 29 mmol/L (22-30); Chloride 100 mmol/L (98-107); Estimated Glomerular Filt Rate > 60; Glucose 106 mg/dL (65-110); Potassium 3.8 mmol/L (3.4-5.0); Sodium 137 mmol/L (137-145)
== END 2024-03-29 09:17 | disposition home or self-care (01) ==
LOC: ANHGOSHLAB 09:18
PROVIDERS: PCP Family Medicine; Visit Provider Family Medicine
DX: N18.31 Chronic kidney disease, stage 3a (principal); R53.82 Chronic fatigue, unspecified
CPT/HCPCS: 36415; 80053; 84443; 85025

== ENCOUNTER 2024-04-24 09:31 | Outpatient (CLI) | payer BC, SELFPAY ==
--- NOTE | 2024-04-24 09:45 | EST_ITS ---
Patient Info Name: Laith Thornton Age: 54 years : 1970 Gender: Male Ht: 72 in Wt: 243 lbs BSA: 2.40 m2 HR: 63 bpm BP: 144 / 90 mmHg Heart Rhythm: Sinus Rhythm Exam Date: 04/24/2024 10:08 AM Exam Location: [facility] Patient Status: Outpatient Admit Date: 04/24/2024 Staff Ordering Physician: Abdoulaye Everett MD Attending Provider: Abdoulaye Everett MD Exercise Technologist: Vanessa Pastor CT Exercise Physician: Neville Cuevas DO Exam Type: CA stress test treadmill Study Info Indications R00.1 - Bradycardia, unspecified A treadmill exercise stress test was performed. Summary 1. 1. Negative Reji exercise stress test for ischemic ST changes by ECG criteria. 2. 2. Good functional capacity, achieving 12 METs of workload. 3. 3. Baseline hypertension. 4. 4. Appropriate HR response to exercise. 5. 5. Appropriate HR recovery at 1 minute post exercise. 6. 6. No imaging with stress testing. 7. 7. Patient informed of the above results. Protocol: Reji Stress ECG Details Stage: REST Duration (min): 1 min : 22 sec Speed (mph): 0.0 Grade (%): 0 HR (bpm): 63 SBP (mmHg): 144 DBP (mmHg): 90 METS: --- Stage: REST Duration (min): 7 min : 38 sec Speed (mph): 0.0 Grade (%): 0 HR (bpm): --- SBP (mmHg): 144 DBP (mmHg): 90 METS: --- Stage: STAGE 1 Duration (min): 1 min : 0 sec Speed (mph): 1.7 Grade (%): 10 HR (bpm): 87 SBP (mmHg): 144 DBP (mmHg): 90 METS: --- Stage: STAGE 1 Duration (min): 2 min : 0 sec Speed (mph): 1.7 Grade (%): 10 HR (bpm): 93 SBP (mmHg): 144 DBP (mmHg): 90 METS: --- Stage: STAGE 1 Duration (min): 3 min : 0 sec Speed (mph): 1.7 Grade (%): 10 HR (bpm): 94 SBP (mmHg): 184 DBP (mmHg): 78 METS: --- Stage: STAGE 2 Duration (min): 1 min : 0 sec Speed (mph): 2.5 Grade (%): 12 HR (bpm): 103 SBP (mmHg): 184 DBP (mmHg): 78 METS: --- Stage: STAGE 2 Duration (min): 2 min : 0 sec Speed (mph): 2.5 Grade (%): 12 HR (bpm): 113 SBP (mmHg): 174 DBP (mmHg): 81 METS: --- Stage: STAGE 2 Duration (min): 3 min : 0 sec Speed (mph): 2.5 Grade (%): 12 HR (bpm): 117 SBP (mmHg): 174 DBP (mmHg): 81 METS: --- Stage: STAGE 3 Duration (min): 1 min : 0 sec Speed (mph): 3.4 Grade (%): 14 HR (bpm): 122 SBP (mmHg): 177 DBP (mmHg): 91 METS: --- Stage: STAGE 3 Duration (min): 2 min : 0 sec Speed (mph): 3.4 Grade (%): 14 HR (bpm): 131 SBP (mmHg): 177 DBP (mmHg): 91 METS: --- Stage: STAGE 3 Duration (min): 3 min : 0 sec Speed (mph): 3.4 Grade (%): 14 HR (bpm): 139 SBP (mmHg): 193 DBP (mmHg): 63 METS: --- Stage: STAGE 4 Duration (min): 1 min : 0 sec Speed (mph): 4.2 Grade (%): 16 HR (bpm): 148 SBP (mmHg): 193 DBP (mmHg): 63 METS: --- Stage: STAGE 4 Duration (min): 1 min : 0 sec Speed (mph): 4.2 Grade (%): 16 HR (bpm): 148 SBP (mmHg):
--- NOTE | 2024-05-02 14:27 | WPDHOLTEREM ---
Holter/Event Monitor Holter/Event Monitor Date of procedure: 04/24/24 Holter/Event Procedure: 48 Hr Holter Monitor Indications: Bradycardia Conclusion: 1. 48 hour holter monitor on 04/24/24. 2. Underlying rhythm is sinus rhythm. HR range 45-140 bpm; average HR 70 bpm. HR at 45 bpm was at 01:35. HR at 140 bpm was at 13:43. 3. There are 48 premature supraventricular complexes and 4 supraventricular couplets. No supraventricular tachycardia. 4. No premature ventricular complexes. No ventricular tachycardia. 5. No sinoatrial or atrioventricular blocks. No significant pauses greater than 2 seconds. 6. No symptoms available for correlation.
== END 2024-04-24 09:32 | disposition home or self-care (01) ==
PROVIDERS: PCP Family Medicine; Visit Provider Family Medicine
DX: R00.1 Bradycardia, unspecified (principal); R11.0 Nausea; R53.1 Weakness; R53.82 Chronic fatigue, unspecified
CPT/HCPCS: 93017; 93225; 93226

== ENCOUNTER 2024-07-12 10:00 | Outpatient (CLI) | payer BC, SELFPAY ==
[2024-07-12 12:36] LABS: Prostate Specific Antigen 0.8 ng/mL (< OR = 4.0)
== END 2024-07-12 10:01 | disposition home or self-care (01) ==
LOC: ANHGOSHLAB 10:01
PROVIDERS: PCP Family Medicine; Visit Provider Family Medicine
DX: Z12.5 Encounter for screening for malignant neoplasm of prostate (principal)
CPT/HCPCS: 36415; 84153; G0103

== ENCOUNTER 2025-04-28 13:10 | Outpatient (CLI) | payer BC, SELFPAY | END 2025-04-28 13:11 | disposition home or self-care (01) | LOC: ANHAUDIO 13:10 | PROVIDERS: PCP Family Medicine; Visit Provider Otolaryngology Otolaryngology/Facial Plastic Surgery | DX: H91.93 Unspecified hearing loss, bilateral (principal) | CPT/HCPCS: 92557; 92567 ==